=== PATIENT | female | born 1985 ===

== ENCOUNTER 2016-05-17 10:50 | Emergency (ER) | payer BC ==
[2016-05-17] MEDS ORDERED: TDAP ADULT 0.5 ML INJ (BOOSTRIX) IM ONE (12:10)
[2016-05-17] MEDS ORDERED: IBUPROFEN 600 MG TAB PO ONE (12:27)
[2016-05-17] MEDS ORDERED: ONDANSETRON DISINTEGRATING 4 MG TAB PO ONE (12:27)
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
[2016-05-17] MEDS ORDERED: IBUPROFEN 200 MG TAB PO ONE (12:48)
--- NOTE | 2016-05-17 13:27 | CPEKG ---
Heart Rate: 102 RR Interval: 588 P-R Interval: 136 QRSD Interval: 84 QT Interval: 312 QTC Interval: 407 P [place]: 74 QRS [place]: 101 T Wave [place]: 14 EKG Severity - OTHERWISE NORMAL ECG - EKG Impression: SINUS TACHYCARDIA EKG Impression: BORDERLINE RIGHT AXIS DEVIATION Electronically Signed By: Ana Adams 17-May-2016 14:48:20
[2016-05-17 13:38] VITALS: BP 125/91; PULSE 112; RESP 16; TEMP 99.9; O2SAT 98
== END 2016-05-17 14:14 | disposition home or self-care (01) ==
LOC: CED 10:50
DX: F41.0 Panic disorder [episodic paroxysmal anxiety] (principal); B34.9 Viral infection, unspecified
CPT/HCPCS: 71020-PO; 76536-PO; 87400-PO; G0463-PO